=== PATIENT | male | born 1995 | race American Indian/Alaskan Native ===

== ENCOUNTER 2018-05-25 11:41 | Emergency (ER) | payer SELFPAY ==
[2018-05-25] MEDS ORDERED: KEPPRA 1,000 MG/NS 0.75% 100ML 1,000 MG/100 ML BAG IV ONE ×2 (12:14→12:16)
--- NOTE | 2018-05-25 13:11 | Emergency Department Report ---
ED Headache HPI - General Chief Complaint: Seizure Stated Complaint: SEIZURE Time Seen by Provider: 05/25/18 12:13 - History of Present Illness Initial Comments: 22-year-old man who developed a headache during intercourse. The patient stated that his headache is now a 5 out of 10. He reports that he woke up on a gurney. His girlfriend witnessed a tonic-clonic seizure. He has no prior history of seizures. He has no family history of subarachnoid hemorrhage/cerebral aneurysm. He has never had anything like this before. He describes the headache as diffuse. He does not have a stiff neck. Timing/Duration: 1/2 hour Quality: moderate Associated Symptoms: denies symptoms (except for witnessed seizure) Allergies/Adverse Reactions: Allergies peanut Allergy (Verified 05/25/18 11:59) Unknown tree nut Allergy (Verified 05/25/18 11:59) Unknown ED Review of Systems ROS: Stated complaint: SEIZURE Other details as noted in HPI Constitutional: denies: chills, fever Eyes: denies: eye pain, eye discharge, vision change ENT: denies: ear pain, throat pain Respiratory: denies: cough, shortness of breath, wheezing Cardiovascular: denies: chest pain, palpitations Endocrine: no symptoms reported Gastrointestinal: denies: abdominal pain, nausea, diarrhea Genitourinary: denies: urgency, dysuria Musculoskeletal: denies: back pain, joint swelling, arthralgia Skin: denies: rash, lesions Neurological: headache. denies: weakness, paresthesias Psychiatric: denies: anxiety, depression Hematological/Lymphatic: denies: easy bleeding, easy bruising ED Past Medical Hx - Past Medical History Previous Medical History?: No - Surgical History Past Surgical History?: No - Social History Smoking Status: Never Smoker Substance Use Type: Alcohol, Marijuana ED Physical Exam - General Limitations: No Limitations General appearance: alert, in no apparent distress - Head Head exam: Present: atraumatic, normocephalic - Eye Eye exam: Present: normal appearance. Absent: scleral icterus - ENT ENT exam: Present: mucous membranes moist - Neck Neck exam: Present: normal inspection. Absent: tenderness, meningismus - Respiratory Respiratory exam: Present: normal lung sounds bilaterally. Absent: respiratory distress - Cardiovascular Cardiovascular Exam: Present: regular rate, normal rhythm. Absent: systolic murmur, diastolic murmur, rubs, gallop - GI/Abdominal GI/Abdominal exam: Present: soft, normal bowel sounds. Absent: distended, tenderness, guarding, rebound - Rectal Rectal exam: Present: deferred - Extremities Exam Extremities exam: Present: normal inspection - Back Exam Back exam: Present: normal inspection - Neurological Exam Neurological exam: Present: alert, oriented X3, CN II-XII intact, other (cerebellar testing was normal). Absent: motor sensory deficit - Psychiatric Psychiatric exam: Present: normal affect, normal mood - Skin Skin exam: Present: warm, dry, intact, normal color. Absent: rash ED Course Vital Signs 05/25/18 05/25/18 05/25/18 11:56 12:00 12:15 Temperature Pulse Rate 106 H 104 H Respiratory 12 9 L 11 L Rate Blood Pressure 119/59 118/63 O2 Sat by Pulse 100 100 Oximetry 05/25/18 05/25/18 12:30 12:41 Temperature 97.8 F Pulse Rate 100 H Respiratory 12 Rate Blood Pressure 124/65 O2 Sat by Pulse Oximetry - Reevaluation(s) Reevaluation #1: The patient was given a gram of Keppra. He was sent to CT for emergent imaging. I did look at his scan which appears to be normal on my preliminary interpretation. A CT angiogram of the head was performed. 05/25/18 13:10 Reevaluation #2: Patient remains neurologically intact. Radiology has reviewed his studies and found them to be entirely normal. I have looked at his CT several times myself. I do not see any subtle signs of subarachnoid hemorrhage either. I believe studies are indeed completely normal. I think the patient has a postcoital headache type syndrome. His headache is very mild at this time. He never even ask for anything for pain. He will be given Tylenol and referred to neurology. He is told not to drive until cleared by neurology. He is agreeable with this plan. 05/25/18 15:00 ED Medical Decision Making - Lab Data Result diagrams: 05/25/18 13:27 05/25/18 13:31 Laboratory Results - last 24 hr 05/25/18 05/25/18 05/25/18 13:27 13:31 13:31 WBC 10.0 RBC 4.70 Hgb 13.8 Hct 41.7 MCV 89 MCH 29 MCHC 33 RDW 13.1 L Plt Count 169 Lymph % (Auto) 7.1 L Meade % (Auto) 4.8 Eos % (Auto) 0.8 Baso % (Auto) 0.7 Lymph # 0.7 L Meade # 0.5 Eos # 0.1 Baso # 0.1 Seg Neutrophils % 86.6 H Seg Neutrophils # 8.7 H Sodium 133 L Potassium 3.8 Chloride 98.4 Carbon Dioxide 23 Anion Gap 15 BUN 12 Creatinine 0.7 L Estimated GFR > 60 BUN/Creatinine Ratio 17 Glucose 89 Calcium 8.5 Total Bilirubin 0.50 Direct Bilirubin < 0.2 AST 19 ALT 13 Alkaline Phosphatase 37 Total Protein 6.6 Albumin 4.1 Albumin/Globulin Ratio 1.6 Urine Color Urine Turbidity Urine pH Ur Specific Doddridge Urine Protein Urine Glucose (UA) Urine Ketones Urine Blood Urine Nitrite Urine Bilirubin Urine Urobilinogen Ur Leukocyte Esterase Urine WBC (Auto) Urine RBC (Auto) Urine Mucus Urine Yeast (Budding) Urine Opiates Screen Urine Methadone Screen Ur Barbiturates Screen Ur Phencyclidine Scrn Ur Amphetamines Screen U Benzodiazepines Scrn Urine Cocaine Screen Plasma/Serum Alcohol < 0.01 05/25/18 05/25/18 13:54 13:54 WBC RBC Hgb Hct MCV MCH MCHC RDW Plt Count Lymph % (Auto) Meade % (Auto) Eos % (Auto) Baso % (Auto) Lymph # Meade # Eos # Baso # Seg Neutrophils % Seg Neutrophils # Sodium Potassium Chloride Carbon Dioxide Anion Gap BUN Creatinine Estimated GFR BUN/Creatinine Ratio Glucose Calcium Total Bilirubin Direct Bilirubin AST ALT Alkaline Phosphatase Total Protein Albumin Albumin/Globulin Ratio Urine Color Yellow Urine Turbidity Clear Urine pH 7.0 Ur Specific Dod[place] 1.018 Urine Protein <15 mg/dl Urine Glucose (UA) Neg Urine Ketones Neg Urine Blood Sm Urine Nitrite Neg Urine Bilirubin Neg Urine Urobilinogen < 2.0 Ur Leukocyte Esterase Neg Urine WBC (Auto) 1.0 Urine RBC (Auto) 2.0 Urine Mucus Few Urine Yeast (Budding) Few Urine Opiates Screen Presumptive negative Urine Methadone Screen Presumptive negative Ur Barbiturates Screen Presumptive negative Ur Phencyclidine Scrn Presumptive negative Ur Amphetamines Screen Presumptive negative U Benzodiazepines Scrn Presumptive negative Urine Cocaine Screen Presumptive negative Plasma/Serum Alcohol Critical care attestation.: If time is entered above; I have spent that time in minutes in the direct care of this critically ill patient, excluding procedure time. ED Disposition Clinical Impression: Generalized seizure Cephalalgia Qualifiers: Headache type: unspecified Headache chronicity pattern: acute headache Intractability: not intractable Qualified Code(s): R51 - Headache Disposition: DC-01 TO HOME OR SELFCARE Is pt being admited?: No Does the pt Need Aspirin: No Condition: Stable Instructions: Acute Headache (ED), Non-epileptic Seizures (ED) Additional Instructions: Return to the emergency department should you have any significant headache, that is, worsening headache and you have at this point which she said is mild. Return if you have any neck discomfort stiffness or any weakness or numbness. Return for any difficulty with her coordination or ability to walk. Return any acute change. Since he had a seizure, it is recommended that you do not drive until you are seen by a neurologist. I will give you some possibilities for follow-up with a neurologist. Avoid significant exertion until you are seen by the neurologist. Referrals: IZZY MOY MD [Primary Care Provider] - 3-5 Days SHREE PAREDES MD, PHD [Referring] - 3-5 Days PERFECTO NINA MD [Referring] - 3-5 Days KACEY BLACKMAN MD [Staff Physician] - 3-5 Days Time of Disposition: 15:03
--- NOTE | 2018-05-25 13:31 | Cat Scan Report ---
FINAL REPORT EXAM: CT HEAD/BRAIN WO CON HISTORY: Seizure COMPARISON: None. TECHNIQUE: Multiple contiguous axial images were obtained from the skullbase to the vertex without a dministration of IV contrast. FINDINGS: There is normal brain volume for the patient's age. There is no parenchymal hemorrhage or extra-axial fluid collection. There is no mass or mass effect. There is no acute territorial infarct. The ventri cles are midline. The subarachnoid spaces and basilar cisterns are clear. There is no skull fracture. The paranasal sinuses and mastoid air cells are clear. The bilateral orbits are intact. IMPRESSION: No acute intracranial abnormality.
[2018-05-25 14:00] LABS: Basophils # (Auto) 0.1 K/mm3 (0.0-0.1); Basophils % (Auto) 0.7 % (0.0-1.8); Eosinophils # (Auto) 0.1 K/mm3 (0.0-0.4); Eosinophils % (Auto) 0.8 % (0.0-4.3); Hematocrit 41.7 % (35.5-45.6); Hemoglobin 13.8 gm/dl (11.8-15.2); Lymphocytes # (Auto) 0.7 K/mm3 (1.2-5.4); Lymphocytes % (Auto) 7.1 % (13.4-35.0); Mean Corpuscular HGB Conc 33 % (32-34); Mean Corpuscular Volume 89 fl (84-94); Monocytes # (Auto) 0.5 K/mm3 (0.0-0.8); Monocytes % (Auto) 4.8 % (0.0-7.3); Platelet Count 169 K/mm3 (140-440); Red Cell Distribution Width 13.1 % (13.2-15.2)
[2018-05-25 14:13] LABS: Alanine Aminotransferase 13 units/L (7-56); Albumin 4.1 g/dL (3.9-5); BUN/Creatinine Ratio 17; Blood Urea Nitrogen 12 mg/dL (9-20); Calcium 8.5 mg/dL (8.4-10.2); Hemolysis Index 8
[2018-05-25 14:16] LABS: Bilirubin,Direct < 0.2 mg/dL (0-0.2)
[2018-05-25 14:36] LABS: Amphetamine Screen,Urine PRESUMPTIVE NEGATIVE; Benzodiazepines Screen,Urine PRESUMPTIVE NEGATIVE; Bilirubin,Urine NEG (Negative); Blood,Urine SM (Negative); Cocaine Screen,Urine PRESUMPTIVE NEGATIVE; Color,Urine Yellow (Yellow); Methadone Screen,Urine PRESUMPTIVE NEGATIVE; Mucus,Urine FEW /HPF; Opiate Screen,Urine PRESUMPTIVE NEGATIVE; Protein,Urine <15 mg/dL mg/dL (Negative); Urobilinogen,Urine < 2.0 mg/dL (<2.0)
[2018-05-25 14:53] LABS: Cannabinoid Screen,Urine PRESUMPTIVE POSITIVE
--- NOTE | 2018-05-25 14:54 | Cat Scan Report ---
FINAL REPORT EXAM: CT ANGIO HEAD HISTORY: headache and seizure COMPARISON: CT of the head performed on 05/25/2018 TECHNIQUE: Multiple contiguous axial images were obtained through the brain after administration of IV contrast. Reformatted sagittal and coronal images were available for review. 3D maximal intensity projection images of the intracranial vessels was also performed. FINDINGS: The bilateral internal carotid arteries are patent and normal in caliber. The anterior cerebral arter ies and middle cerebral arteries are patent. The basilar artery is patent and normal in caliber. The posterior cerebral arteries are patent and normal in caliber. There is no evidence of aneurysm. The v enous sinuses are patent. There is no abnormal enhancement on post-contrast imaging. IMPRESSION: Normal CT angiogram of the head.
[2018-05-25] MEDS ORDERED: TYLENOL PO ONE (15:07)
[2018-05-26 14:03] VITALS: BP 125/65
== END 2018-05-25 15:55 | disposition home or self-care (01) ==
LOC: ED 11:41
DX: G40.419 Other generalized epilepsy and epileptic syndromes, intractable, without status epilepticus (principal); R51 Headache; Z91.010 Allergy to peanuts
CPT/HCPCS: 36415; 70450; 70496; 80048; 80076; 80307; 81001; 85025; 93005; 93010; 96365; 99285; G0480; J1953; Q9967; 80320